=== PATIENT | male | born 1960 | race Caucasian/White ===

== ENCOUNTER 2018-02-02 23:24 | Emergency (ER) | payer BC ==
[~2018-02-02] VITALS: Ht 170.2 cm; Wt 77.3 kg
[~2018-02-02 23:24] MED LIST: BYSTOLIC10 MG PO; DIOVAN; LODIPINE PO; LORTAB 7.5/5001 TAB PO; LOZOL 2.5M2.5 MG/TAB PO; PRINIVIL40 MG PO
[2018-02-02 23:30] VITALS: TEMP 97.3
[2018-02-02] MEDS ORDERED: BYSTOLIC20 MG PO (23:34)
[2018-02-03] MEDS ORDERED: AMOXICILLIN 8751 TAB PO (00:03)
[2018-02-03 01:25] VITALS: BP 129/91; PULSE 69
== END 2018-02-03 01:25 | disposition home or self-care (01) ==
LOC: COL.ER 23:24
DX: S61.452A Open bite of left hand, initial encounter (principal); S61.451A Open bite of right hand, initial encounter; S01.25XA Open bite of nose, initial encounter; F17.210 Nicotine dependence, cigarettes, uncomplicated; Z23 Encounter for immunization; W54.0XXA Bitten by dog, initial encounter; Y92.414 Local residential or business street as the place of occurrence of the external cause

== ENCOUNTER 2018-02-07 16:42 | Emergency (ER) | payer BC ==
[~2018-02-07 16:42] MED LIST changes: +AMOXICILLIN 8751 TAB PO; +BYSTOLIC20 MG PO
[2018-02-07 16:54] VITALS: BP 112/72; PULSE 59; TEMP 98.1
== END 2018-02-07 16:58 | disposition home or self-care (01) ==
LOC: COL.ER 16:42
DX: S01.21XD Laceration without foreign body of nose, subsequent encounter (principal); X58.XXXD Exposure to other specified factors, subsequent encounter

== ENCOUNTER 2021-06-26 05:57 | Emergency (ER) | payer BC ==
[~2021-06-26] VITALS: Ht 177.8 cm; Wt 90.9 kg
[2021-06-26 06:29] LABS: COLLECTION METHOD IN
[2021-06-26 06:31] LABS: BASO # 0.1 K/mm3 (0.0-0.2); BASO % 0.9 % (0.0-2.0); EOS # 0.2 K/mm3 (0.0-0.7); EOS % 1.6 % (0-4.0); GRAN # 9.4 K/mm3 (1.4-6.5); GRAN % 63.7 % (42.2-75.2); HEMATOCRIT 46.8 % (42.0-52.0); LYMPH # 4.3 K/mm3 (1.2-3.4); LYMPH % 28.9 % (20.0-51.0); MEAN CELL VOLUME 87 fl (80.0-100.0); MEAN CORPUSCULAR HEMOGLOBIN 30 pg (27.0-31.0); MEAN CORPUSCULAR HGB CONC 34 g/dl (33.0-37.0); MEAN PLATELET VOLUME 11.9 fl (7.4-10.4); MONO # 0.7 K/mm3 (0.1-0.6); MONO % 4.4 % (1.7-9.3); PLATELET COUNT 195 K/mm3 (130-400); RED BLOOD COUNT 5.37 M/mm3 (4.20-5.60); REDCELL DISTRIBUTION WIDTH-CV 13.8 % (11.5-14.5)
[2021-06-26 06:33] VITALS: TEMP 95.1
[2021-06-26 06:36] LABS: PH 7 (5-8); SQUAMOUS EPITHELIAL None Seen /hpf (0-10); URINE APPEARANCE Clear (CLEAR/HAZY); URINE BACTERIA None Seen (NONE SEEN); URINE BILIRUBIN Negative (NEGATIVE); URINE BLOOD Negative (NEGATIVE); URINE COLOR Colorless (YELLOW); URINE GLUCOSE 2+ (NEGATIVE); URINE KETONE Negative (NEGATIVE); URINE LEUKOCYTE ESTERASE Negative (NEGATIVE); URINE NITRATE Negative (NEGATIVE); URINE PROTEIN(semi-quant) 1+ (NEGATIVE); URINE RBC 0-2 /hpf (0-2); URINE UROBILINOGEN Negative (NEGATIVE)
[2021-06-26 06:39] LABS: PROTHROMBIN TIME 11.3 SECONDS (9.7-12.8)
[2021-06-26 06:55] LABS: ALANINE AMINOTRANSFERASE 42 U/L (0-55); ALBUMIN 4.1 gm/dL (3.4-4.8); ALCOHOL(ethanol),MEDICAL 10 mg/dL (0-10); ALKALINE PHOSPHATASE 58 U/L (40-150); ANION GAP 13 mmol/L (7-16); AST,SGOT 34 U/L (5-34); BILIRUBIN,TOTAL 0.5 mg/dL (0.2-1.2); BLOOD UREA NITROGEN 17 mg/dL (8-26); CALCIUM 8.4 mg/dL (8.4-10.2); CARBON DIOXIDE 19 mmol/L (23-31); CHLORIDE 106 mmol/L (98-107); CREATININE, serum 0.91 mg/dL (0.72-1.25); GLUCOSE 238 mg/dL (70-99); POTASSIUM 3.4 mmol/L (3.5-4.5); SODIUM 138 mmol/L (136-145); TOTAL PROTEIN 7.4 gm/dL (6.2-8.1)
[2021-06-26 07:02] LABS: TROPONIN-I < 0.010 ng/mL (0.00-0.033)
[2021-06-26 08:01] VITALS: BP 138/88; PULSE 80
== END 2021-06-26 08:20 | disposition short-term general hospital (02) ==
LOC: COL.ER 05:57
PROVIDERS: Emergency Medicine
DX: I62.00 Nontraumatic subdural hemorrhage, unspecified (principal); E11.9 Type 2 diabetes mellitus without complications; Z20.822 Contact with and (suspected) exposure to COVID-19; Z79.899 Other long term (current) drug therapy
CPT/HCPCS: J3010; J7030; J7050